=== PATIENT | male | born 1955 | race Two or more races ===

== ENCOUNTER 2018-03-25 13:59 | Emergency (ER) | payer OTHER ==
[~2018-03-25] VITALS: Ht 165.1 cm; Wt 57.2 kg
== END 2018-03-25 20:18 | disposition home or self-care (01) ==
LOC: ER 13:59
DX: S72.141A Displaced intertrochanteric fracture of right femur, initial encounter for closed fracture (principal); W18.09XA Striking against other object with subsequent fall, initial encounter; Y93.89 Activity, other specified; Y92.018 Other place in single-family (private) house as the place of occurrence of the external cause; Y99.8 Other external cause status

== ENCOUNTER 2018-03-26 18:13 | Inpatient (IN) | payer OTHER ==
[~2018-03-26] VITALS: Ht 165.1 cm; Wt 58.1 kg
[2018-03-29] MEDS ORDERED: XARELTO10 MG PO (13:40)
[2018-03-29] MEDS ORDERED: CEFADROXIL500 MG PO (13:40)
[2018-03-29] MEDS ORDERED: PERCOCET 5-3251 EACH PO (13:40)
== END 2018-03-29 17:14 | DRG 481 ==
LOC: ER 18:13 → SURG 21:14 → SEC-K 21:14 → SURG 21:33
PROVIDERS: Orthopaedic Surgery
PROC: 0QS606Z Reposition Right Upper Femur with Intramedullary Internal Fixation Device, Open Approach (ICD-10-PCS; 2018-03-26)
PROC: 2W6 Placement, Anatomical Regions, Traction (ICD-10-PCS; 2018-03-26)
PROC: B42FZZZ Computerized Tomography (CT Scan) of Right Lower Extremity Arteries (ICD-10-PCS; principal; 2018-03-27 02:15)
DX: S72.141A Displaced intertrochanteric fracture of right femur, initial encounter for closed fracture (principal); N39.0 Urinary tract infection, site not specified; M06.89 Other specified rheumatoid arthritis, multiple sites; D72.828 Other elevated white blood cell count; B96.20 Unspecified Escherichia coli [E. coli] as the cause of diseases classified elsewhere; Z16.12 Extended spectrum beta lactamase (ESBL) resistance; W18.39XA Other fall on same level, initial encounter; Y93.89 Activity, other specified; Y92.098 Other place in other non-institutional residence as the place of occurrence of the external cause; Y99.8 Other external cause status

== ENCOUNTER → 2020-02-12 15:00 | Outpatient (CLI) | payer OTHER ==
[~2020-02-12 15:00] MED LIST: CEFADROXIL500 MG PO; PERCOCET 5-3251 EACH PO; XARELTO10 MG PO
== END | disposition home or self-care (01) ==
LOC: TOM 02-11 09:40
PROVIDERS: ATTEND Internal Medicine
DX: K29.60 Other gastritis without bleeding (principal); Z96.641 Presence of right artificial hip joint; M06.9 Rheumatoid arthritis, unspecified; I11.9 Hypertensive heart disease without heart failure; G45.8 Other transient cerebral ischemic attacks and related syndromes; C91.Z0 Other lymphoid leukemia not having achieved remission; D50.8 Other iron deficiency anemias

== ENCOUNTER 2020-12-03 13:20 | Outpatient (CLI) | payer OTHER | END 2020-12-03 13:27 | disposition home or self-care (01) | LOC: NUCLEAR 13:20 | PROVIDERS: ATTEND Internal Medicine | DX: M81.0 Age-related osteoporosis without current pathological fracture (principal) ==

== ENCOUNTER 2021-03-19 22:06 | Inpatient (IN) | payer OTHER ==
[~2021-03-19] VITALS: Ht 165.1 cm; Wt 54.4 kg
[2021-03-19] MEDS ORDERED: PROTONIX20 MG (22:36)
[2021-03-26] MEDS ORDERED: PROTONIX40 MG PO (10:27)
== END 2021-03-26 11:37 | disposition home or self-care (01) | DRG 378 ==
LOC: ER 22:06 → MEDJ 03-20 13:50
PROVIDERS: ADMIT Internal Medicine; ATTEND Internal Medicine
PROC: 30233N1 Transfusion of Nonautologous Red Blood Cells into Peripheral Vein, Percutaneous Approach (ICD-10-PCS; principal; 2021-03-22)
PROC: 0DB98ZX Excision of Duodenum, Via Natural or Artificial Opening Endoscopic, Diagnostic (ICD-10-PCS; 2021-03-24)
PROC: 0DB78ZX Excision of Stomach, Pylorus, Via Natural or Artificial Opening Endoscopic, Diagnostic (ICD-10-PCS; 2021-03-24)
DX: K62.5 Hemorrhage of anus and rectum (principal); N39.0 Urinary tract infection, site not specified; Z16.12 Extended spectrum beta lactamase (ESBL) resistance; I69.354 Hemiplegia and hemiparesis following cerebral infarction affecting left non-dominant side; K92.0 Hematemesis; M06.9 Rheumatoid arthritis, unspecified; E86.0 Dehydration; Z20.822 Contact with and (suspected) exposure to COVID-19; D64.9 Anemia, unspecified; B96.29 Other Escherichia coli [E. coli] as the cause of diseases classified elsewhere; K52.89 Other specified noninfective gastroenteritis and colitis; K29.80 Duodenitis without bleeding; K26.7 Chronic duodenal ulcer without hemorrhage or perforation; K29.50 Unspecified chronic gastritis without bleeding; K44.9 Diaphragmatic hernia without obstruction or gangrene

== ENCOUNTER 2021-05-29 10:22 | Emergency (ER) | payer OTHER ==
[~2021-05-29] VITALS: Ht 165.1 cm; Wt 49.9 kg
[~2021-05-29 10:22] MED LIST changes: +PROTONIX20 MG; +PROTONIX40 MG PO
[2021-05-29] MEDS ORDERED: FOLIC ACID20 MG (10:30)
[2021-05-29] MEDS ORDERED: IBANDRONATE SO150 MG (10:30)
[2021-05-29] MEDS ORDERED: METHOTREXATE2.5 MG (10:31)
[2021-05-29] MEDS ORDERED: CAMBIA50 MG (10:31)
[2021-05-29] MEDS ORDERED: PLAVIX75 MG (10:32)
== END 2021-05-29 19:26 | disposition home or self-care (01) ==
LOC: ER 10:22
DX: R55 Syncope and collapse (principal); R25.8 Other abnormal involuntary movements

== ENCOUNTER 2021-05-31 08:30 | Outpatient (CLI) | payer OTHER ==
[~2021-05-31 08:30] MED LIST changes: +CAMBIA50 MG; +FOLIC ACID20 MG; +IBANDRONATE SO150 MG; +METHOTREXATE2.5 MG; +PLAVIX75 MG
== END 2021-05-31 09:30 | disposition home or self-care (01) ==
LOC: PPH VACUNA 08:30
PROVIDERS: ATTEND Emergency Medicine Pediatric Emergency Medicine
DX: Z23 Encounter for immunization (principal)

== ENCOUNTER 2021-08-01 15:13 | Emergency (ER) | payer OTHER ==
[~2021-08-01] VITALS: Ht 162.6 cm; Wt 51.7 kg
== END 2021-08-02 09:29 | disposition designated cancer center or children's hospital (05) ==
LOC: ER 15:13
DX: S52.022A Displaced fracture of olecranon process without intraarticular extension of left ulna, initial encounter for closed fracture (principal); S42.492A Other displaced fracture of lower end of left humerus, initial encounter for closed fracture; S60.221A Contusion of right hand, initial encounter; R07.89 Other chest pain; M12.512 Traumatic arthropathy, left shoulder; M12.541 Traumatic arthropathy, right hand; Z03.818 Encounter for observation for suspected exposure to other biological agents ruled out; W18.39XA Other fall on same level, initial encounter; Y93.89 Activity, other specified; Y92.018 Other place in single-family (private) house as the place of occurrence of the external cause; Y99.8 Other external cause status

== ENCOUNTER → 2021-09-06 | Emergency (ER) | payer OTHER ==
[~2021-09-06] VITALS: Ht 165.1 cm; Wt 49.9 kg
[~2021-09-06] MED LIST changes: +DICLOFENAC-MIS1 EAC1; +LASIX20 MG
== END | disposition home or self-care (01) ==
LOC: ER 10:47
DX: E86.0 Dehydration (principal); Z20.822 Contact with and (suspected) exposure to COVID-19; S42.402S Unspecified fracture of lower end of left humerus, sequela; M12.541 Traumatic arthropathy, right hand; M12.512 Traumatic arthropathy, left shoulder; N17.8 Other acute kidney failure; D64.89 Other specified anemias; D69.49 Other primary thrombocytopenia; T84.59XA Infection and inflammatory reaction due to other internal joint prosthesis, initial encounter; S20 Superficial injury of thorax; B96.5 Pseudomonas (aeruginosa) (mallei) (pseudomallei) as the cause of diseases classified elsewhere; B96.4 Proteus (mirabilis) (morganii) as the cause of diseases classified elsewhere; B96.89 Other specified bacterial agents as the cause of diseases classified elsewhere